=== PATIENT | male | born 1990 | race Caucasian/White ===

== ENCOUNTER 2025-05-05 12:21 | Emergency (ER) | payer OTHER ==
[~2025-05-05] VITALS: Ht 180.3 cm; Wt 108.0 kg
[2025-05-05 12:32] VITALS: BP 105/76; PULSE 97; RESP 18; TEMP 97.5; O2SAT 98
[2025-05-05] MEDS: IBUPROFEN 600 MG TABLET PO ONE (13:02)
[2025-05-05] MEDS: ACETAMINOPHEN 500 MG TABLET PO ONE (13:02)
[2025-05-05] MEDS ORDERED: ACET-3385 PO (13:29)
[2025-05-05] MEDS ORDERED: IBUP-1492 PO (13:29)
== END 2025-05-05 13:59 | disposition home or self-care (01) ==
LOC: EMS 12:24
DX: S46.211A Strain of muscle, fascia and tendon of other parts of biceps, right arm, initial encounter (principal); X50.0XXA Overexertion from strenuous movement or load, initial encounter; Y93.89 Activity, other specified; Y92.89 Other specified places as the place of occurrence of the external cause; Y99.8 Other external cause status
CPT/HCPCS: 99283